=== PATIENT | female | born 1990 | race Caucasian/White ===

== ENCOUNTER 2024-02-27 14:14 | Emergency (ER) | payer SELFPAY ==
[~2024-02-27] VITALS: Ht 165.1 cm; Wt 63.6 kg
[2024-02-27 14:19] VITALS: TEMP 98.8
[2024-02-27 15:40] VITALS: BP 112/83; PULSE 70
== END 2024-02-27 15:40 | disposition home or self-care (01) ==
LOC: COL.ER 14:14
DX: Z77.098 Contact with and (suspected) exposure to other hazardous, chiefly nonmedicinal, chemicals (principal)